=== PATIENT | male | born 1970 | race Hispanic/Latino ===

== ENCOUNTER 2020-03-25 14:11 | Emergency (ER) | payer OTHER ==
[2020-03-25] MEDS ORDERED: IBUPROFEN 800 MG TAB PO ONE (15:08)
[2020-03-25] MEDS ORDERED: MORPHINE 4 MG/1 ML INJ IM ONE (16:12)
[2020-03-25] MEDS ORDERED: ONDANSETRON 4 MG/2 ML INJ IV ONE (16:12)
[2020-03-25] MEDS ORDERED: BUPIVACAINE/PF (0.5%) 5 MG/1 ML 30 ML VIAL INFILTRATI ONE (16:23)
--- NOTE | 2020-03-25 16:25 | Event Note ---
The patient is a [id number] male, who presents with accidental left third finger distal amputation, complete amputation/avulsion of the nail, including the nailbed, and open fracture. The patient requires evaluation by a hand specialist which we do not have available at this facility. Physician security assistant has been instructed to place the fingertip that was amputated in 4 x 4 gauze, soaked in sterile saline, placed in a specimen bag, this bag itself will then be placed in a second bag on ice. It is specifically understood that the amputated fingertip would not be touching the ice directly. A thecal block will be performed, irrigation and hemostasis will be achieved, wound dressing will be applied, empiric prophylactic antibiotics will be administered. This patient has an emergency medical condition at this time which cannot be definitively managed at this hospital, as we do not have hand surgeons who are capable of repairing/grafting amputated fingertips. The patient is hemodynamically stable for transfer to receiving facility for definitive care. Print Report Referring Physician: ROLANDO GILL Patient Name: DAE MEJIA Date of : 1970 Sex: Male Report Date: 2020-03-25 Report Status: Finalized Findings [facility] [address] [place] [address] XRay Report Signed Patient: DAE MEJIA MR#: [id number] 08 : 1970 Acct:[id number] Age/Sex: 49 / M ADM Date: 03/25/20 Loc: ED Attending Dr: Ordering Physician: JOHN RIVERA Date of Service: 03/25/20 Procedure(s): XR finger(s) 2+V LT Accession Number(s): [id number] cc: JOHN RIVERA Fluoro Time In Minutes: LEFT FINGERS 2 VIEWS INDICATION / CLINICAL INFORMATION: Band saw injury to middle finger COMPARISON: None available. FINDINGS: BONES / JOINT(S): There is partial amputation of the distal tip of the third finger. There appears to be a small portion of the distal tuft of the distal phalanx is missing. No significant arthritis. SOFT TISSUES: There is soft tissue injury of the distal aspect of the third finger ADDITIONAL FINDINGS: None. Signer Name: Cody Stephens MD Signed: 03/25/2020 4:41 PM Workstation Name: [id number] Transcribed By: SS Dictated By: Cody Stephens MD Electronically Authenticated By: Cody Stephens MD Signed Date/Time: 03/25/20 1641 DD/ 1639 TD/TT: Vital Signs 03/25/20 14:16 Temperature 98.2 F Pulse Rate 99 H Respiratory 18 Rate Blood Pressure 156/109 [Right] O2 Sat by Pulse 99 Oximetry
[2020-03-25] MEDS ORDERED: DIPHtheria,PERTUSSIS(ACELL),TETANUS VACCINE/PF 0.5 ML VIAL IM ONE (16:28)
--- NOTE | 2020-03-25 16:31 | Emergency Department Report ---
- General Chief Complaint: Laceration/Recheck/Suture Stated Complaint: FINGER CUT Time Seen by Provider: 03/25/20 15:59 Source: patient Mode of arrival: Ambulatory Limitations: No Limitations - History of Present Illness Initial Comments: 49-year-old male reports to the emergency room stating he amputated his left middle finger on a dryer belt devika just prior to coming to the ER. Patient states that his last TD was approximately 3 years ago. Patient is right-hand dominant. Patient report his pains a 9 out of 10. Patient states that he brought his amputated tip to the emergency room as well. Tip was placed in ice. Patient denies no other past medical history he has no known drug allergies and takes no medications on a daily basis. -: minutes(s) (Just prior to arrival) Time: 13:30 Extremity Location: Left: Hand (Left distal middle finger ) Place: work Patient Tetanus UTD: Yes (3 years) Context: accidental Associated Symptoms: pain - Related Data Allergies Allergy/AdvReac Type Severity Reaction Status Date / Time bee venom protein (honey bee) Allergy Unknown Verified 03/25/20 16:52 ED Review of Systems ROS: Stated complaint: FINGER CUT Other details as noted in HPI Comment: All other systems reviewed and negative ED Physical Exam - General Limitations: No Limitations General appearance: alert, in no apparent distress - Head Head exam: Present: atraumatic, normocephalic - Eye Eye exam: Present: normal appearance - ENT ENT exam: Present: mucous membranes moist - Neck Neck exam: Present: normal inspection - Expanded Upper Extremity Exam Left Shoulder Exam: Present: normal inspection Upper Arm exam: Present: normal inspection Elbow exam: Present: normal inspection Forearm Wrist exam: Present: normal inspection Hand Wrist exam: Present: amputation (Left distal nailbed and pad) Vascular: Present: normal capillary refill - Back Exam Back exam: Present: normal inspection - Psychiatric Psychiatric exam: Present: normal affect, normal mood - Skin Skin exam: Present: warm, dry ED Course Vital Signs 03/25/20 03/25/20 14:16 18:27 Temperature 98.2 F 98.2 F Pulse Rate 99 H 86 Respiratory 18 16 Rate Blood Pressure 156/109 136/89 [Right] O2 Sat by Pulse 99 99 Oximetry - Reevaluation(s) Reevaluation #1: 03/25/20 16:50 Spoke to [facility] for transfer to their facility for amputation of the left middle finger cyst they states that Dr. Juarez accepted the transfer as a level 2 ED to ED. ED Medical Decision Making - Radiology Data Radiology results: report reviewed Referring Physician:ROLANDO GILLPatient Name:DAE GILBERTatient ID:[id number] of :[id number]:MaleAccession:[id number] Date:[id number] Status:Finalized Findings [facility] [address] [place] [address] XRay Report Signed Patient: DAE MEJIA MR#: [id number] 08 : 1970 Acct:[id number] Age/Sex: 49 / M ADM Date: 03/25/20 Loc: ED Attending Dr: Ordering Physician: JOHN RIVERA Date of Service: 03/25/20 Procedure(s): XR finger(s) 2+V LT Accession Number(s): [id number] cc: JOHN RIVERA Fluoro Time In Minutes: LEFT FINGERS 2 VIEWS INDICATION / CLINICAL INFORMATION: Band saw injury to middle finger COMPARISON: None available. FINDINGS: BONES / JOINT(S): There is partial amputation of the distal tip of the third finger. There appears to be a small portion of the distal tuft of the distal phalanx is missing. No significant arthritis. SOFT TISSUES: There is soft tissue injury of the distal aspect of the third finger ADDITIONAL FINDINGS: None. Signer Name: Cody Stephens MD Signed: 03/25/2020 4:41 PM Workstation Name: [id number] Transcribed By: Dictated By: Cody Stephens MD Electronically Authenticated By: Cody Stephens MD Signed Date/Time: 03/25/20 1641 DD/ 1639 TD/TT: - Medical Decision Making 49-year-old male reports to the emergency room stating he amputated his left middle finger on a dryer belt devika just prior to coming to the ER. Patient states that his last TD was approximately 3 years ago. Patient is right-hand dominant. Patient report his pains a 9 out of 10. Patient states that he brought his amputated tip to the emergency room as well. Tip was placed in ice. Patient denies no other past medical history he has no known drug allergies and takes no medications on a daily basis. Critical care attestation.: If time is entered above; I have spent that time in minutes in the direct care of this critically ill patient, excluding procedure time. ED Disposition Clinical Impression: Amputation of left middle finger Disposition: DC/TX-70 ANOTHER TYPE HLTHCARE Is pt being admited?: No Does the pt Need Aspirin: No Condition: Stable Additional Instructions: Patient is being transferred to [place] ED to ED. Referrals: PRIMARY CARE, [Primary Care Provider] - 3-5 Days
--- NOTE | 2020-03-25 16:45 | XRay Report ---
LEFT FINGERS 2 VIEWS INDICATION / CLINICAL INFORMATION: Band saw injury to middle finger COMPARISON: None available. FINDINGS: BONES / JOINT(S): There is partial amputation of the distal tip of the third finger. There appears to be a small portion of the distal tuft of the distal phalanx is missing. No significant arthritis. SOFT TISSUES: There is soft tissue injury of the distal aspect of the third finger ADDITIONAL FINDINGS: None. Signer Name: Cody Stephens MD Signed: 03/25/2020 4:41 PM Workstation Name: [id number]
[2020-03-25] MEDS ORDERED: SODIUM CHLORIDE 0.9% IRR 500 ML BOTTLE IR ONE (16:57)
[2020-03-25] MEDS ORDERED: ceFAZolin/NS 1 GM/50 ML 1 GM/50 ML BAG IV ONE (17:00)
[2020-03-25] MEDS ORDERED: SILVER NITRATE APPLICATOR 1 EA TP ONE ×2 (17:23→18:31)
[2020-03-25 18:28] VITALS: BP 136/89
== END 2020-03-25 18:52 | disposition other institution (70) ==
LOC: ED 14:11
DX: S69.92XA Unspecified injury of left wrist, hand and finger(s), initial encounter (principal); W45.8XXA Other foreign body or object entering through skin, initial encounter; Y93.89 Activity, other specified; Y92.89 Other specified places as the place of occurrence of the external cause; Y99.8 Other external cause status
CPT/HCPCS: 73140; 90471; 90715; 96365; 96372; 96375; 99285; J0690; J2270; J2405